=== PATIENT | female | born 1970 | race Caucasian/White ===

== ENCOUNTER 2020-11-18 13:18 | Emergency (ER) | payer OTHER, SELFPAY ==
[2020-11-18 14:00] VITALS: BP 137/74; PULSE 74; RESP 16; TEMP 36.8; O2SAT 93; BMI 33.5
--- NOTE | 2020-11-18 14:26 | W.ED.GENADLT ---
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 Tetanus is UTD. 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
--- NOTE | 2020-11-18 15:20 | W.ED.GENADLT ---
HPI - General Adult General: Chief complaint: Needlestick/Injury/Exposure Stated complaint: NEEDLE STICK AT WORK/WC Time Seen by Provider: 11/18/20 14:20 Source: patient Mode of arrival: ambulatory Limitations: no limitations History of Present Illness: Onset (ago): hour(s) Location: left and upper extremity Relieving factors: none Exacerbating factors: none Associated symptoms: Reports no associated symptoms Treatments prior to arrival: other (irrigation) Review of Systems General: Reports: 10 or more systems reviewed and unremarkable except in HPI and below Physical Exam Const: COMMON NORMALS: no acute distress, no limitations, healthy appearing and alert Extremity: COMMON NORMALS: normal to inspection Neuro: COMMON NORMALS: moves all extremities, no focal motor deficits and no sensory deficits noted SENSORIUM/ORIENTATION: Yes alert Skin: NARRATIVE SKIN EXAM: no obvious puncture wounds noted Course Vital Signs: Vital signs: Vital Signs Temperature 98.2 F 11/18/20 14:00 Pulse Rate 74 11/18/20 14:00 Respiratory Rate 16 11/18/20 14:00 Blood Pressure 137/74 11/18/20 14:00 Pulse Oximetry 93 11/18/20 14:00 Discharge Plan Discharge Patient Disposition: Home Patient Instructions: Opioid Safety Coding Level of Care Code 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
--- NOTE | 2020-11-18 15:21 | PC.NURSE ---
Pt left the dept before being seen by provider or myself. pt went to her home dept and then went home
[2020-11-18 15:55] LABS: Hepatitis B Surface Antigen Non-Reactive (Nonreactive); Hepatitis C Virus Antibody Non-Reactive (Nonreactive)
[2020-11-18 20:26] LABS: HIV 1 & 2 Antibody Non-Reactive (Non-Reactiv); HIV 1 & 2 Antigen Non-Reactive (Non-Reactiv)
[2020-11-18 21:48] LABS: Hepatitis B Surface AB > 1000.0 (11.5-1000)
== END 2020-11-18 15:46 | disposition home or self-care (01) ==
PROVIDERS: Physician Assistant
DX: Z53.21 Procedure and treatment not carried out due to patient leaving prior to being seen by health care provider (principal)
CPT/HCPCS: 36415; 86706; 86803; 87340; 87806; 99282

== ENCOUNTER 2021-01-19 11:47 | Emergency (ER) | payer OTHER, SELFPAY ==
--- NOTE | 2021-01-19 12:46 | XRR_ITS ---
PROCEDURE INFORMATION: Exam: XR Left Hand Exam date and time: 01/19/2021 12:46 PM Age: 50 years old Clinical indication: Injury or trauma; Work related; Crushing; Left; Injury date: 01/19/21; Injury details: --caught hand between fracture table and the wall at work, pain in 5th digit and palm TECHNIQUE: Imaging protocol: XR Left hand. Views: 1 or 2 views. COMPARISON: No relevant prior studies available. FINDINGS: Bones/joints: No fracture. No dislocation. Soft tissues: No acute soft tissue abnormality. XR/XR hand LT 2V [id number] IMPRESSION: No fracture.
[2021-01-19 12:52] VITALS: BP 151/81; PULSE 63; RESP 18; TEMP 37.2; O2SAT 96
--- NOTE | 2021-01-19 14:37 | W.ED.EXTPRO ---
HPI - Extremity Problem General: Chief complaint: Extremity Injury, Upper Stated complaint: L hand Pain Time Seen by Provider: 01/19/21 13:34 Source: patient Mode of arrival: ambulatory Limitations: no limitations History of Present Illness: HPI Narrative: left hand pain; injury was moving fx board while working and hand was crushed between machine and bed Review of Systems General: Reports: 10 or more systems reviewed and unremarkable except in HPI and below Musc: Reports: extremity pain and extremity swelling PFS ED PFSH: Social History Smoking and tobacco status: former smoker Physical Exam Const: COMMON NORMALS: no acute distress, patient oriented x3, no limitations and alert GENERAL APPEARANCE: cooperative and comfortable ORIENTATION/CONSCIOUSNESS: Yes awake, Yes oriented to person, Yes oriented to place and Yes oriented to time HENMT: COMMON NORMALS: normocephalic, atraumatic, external ears normal, EAC's normal, TM's normal bilaterally and Normal external nose present HEAD & SCALP: normal to inspection, normocephalic and atraumatic FACE & SINUS: normal facial exam, sinuses nontender and face symmetric NOSE: Normal external nose present, Normal nares present and No nasal discharge present EXTERNAL EAR: Yes external ears normal EXTERNAL AUDITORY CANAL: EAC's normal TYMPANIC MEMBRANE: TM's normal bilaterally MOUTH: Normal oral and palatal mucosa present, lip normal and tongue normal THROAT: posterior oropharynx normal, tonsils normal and uvula midline Eye: COMMON NORMALS: Equal, round and reactive pupils present, EOMs intact bilaterally and conjunctivae normal GENERAL EYE: appearance normal, both eyes and all related structures and normal light reflex EYELID: eyelids normal CONJUNCTIVA: Yes conjunctivae normal PUPIL: Yes Equal, round and reactive pupils present EOM: Yes EOM abnormal DIRECT OPHTHALMOSCOPY: Yes normal light reflex Neck/C-Spine: COMMON NORMALS: full ROM, no lymphadenopathy, supple, no meningeal signs, no JVD and Thyroid normal GENERAL: Yes normal visual inspection THYROID: Thyroid normal CERVICAL SPINE: Yes cervical ROM normal and Yes normal cervical lordosis Lymph: LYMPHATIC: no lymphadenopathy noted Chest: COMMONS NORMALS: normal inspection of the chest and normal palpation of entire chest wall Resp: COMMON NORMALS: normal respiratory effort, No retractions and clear to auscultation bilaterally AUSCULTATION: clear to auscultation bilaterally Cardio: COMMON NORMALS: no JVD, regular rate, regular rhythm, S1 normal heart sound present, S2 normal heart sound present, No gallops present (Cardio), No clicks present (Cardio), No murmurs present (Cardio), No rub (Cardio) and Peripheral pulses 2+ throughout RATE: regular rate RHYTHM: regular rhythm HEART SOUNDS: S1 normal heart sound present and S2 normal heart sound present PERIPHERAL PULSES: Peripheral pulses 2+ throughout GI: COMMON NORMALS: Normal to inspection, nondistended, normoactive bowel sounds present, Soft to palpation, non-tender and no masses PALPATION: Yes Soft to palpation : COMMON NORMALS: Yes no CVA tenderness and Yes normal external appearance BLADDER/KIDNEY EXAM: Yes no CVA tenderness Back/Pelvis: COMMON NORMALS: no CVA tenderness, thoracic and lumbar spine normal to inspection, no thoracic nor lumbar tenderness and thoraco-lumbar ROM normal Extremity: COMMON NORMALS: normal to inspection, full ROM, capillary refill normal, no joint enlargement, no clubbing, cyanosis or edema, no calf tenderness and no pedal edema GENERAL: Yes normal exam except as noted LEFT UPPER EXTREMITY: Yes hand & digits (ecchymosis noted to the inside of palm; NV intact ) Neuro: COMMON NORMALS: patient oriented x3, moves all extremities, no focal motor deficits, no sensory deficits noted and gait normal SENSORIUM/ORIENTATION: Yes alert, Yes oriented to person, Yes oriented to place and Yes oriented to time MENINGEAL SIGNS: Yes no meningeal signs Psych: COMMON NORMALS: mental status grossly normal, Normal thought process present, cooperative, normal affect, speech normal and activity/motor behavior normal SPEECH: Yes normal speech THOUGHT PROCESS: Normal thought process present Skin: COMMON NORMALS: no rashes or lesions noted, no wounds and turgor normal GENERAL SKIN EXAM: no rashes or lesions noted and turgor normal Course ED course: Pt was working and moving a fx board when her hand was smashed between it and the bed. She presents to ER with ecchymosis of the left hand and pain and swelling. XRAY is negative for fx. Will proceed with RICE therapy and return if needed. Vital Signs: Vital signs: Vital Signs Temperature 98.9 F 01/19/21 12:52 Pulse Rate 62 01/19/21 14:51 Respiratory Rate 18 01/19/21 14:51 Blood Pressure 154/84 01/19/21 14:51 Pulse Oximetry 95 01/19/21 14:51 MDM - Extremity (Nontraumatic) Imaging Data^: Other Imaging: Radiologist's impression: [address] [address] XRay Report Signed Patient: Marianela Mendoza Unit #: [id number] : 1970 Age/Sex: 50 / F ADM Date: 01/19/21 Loc: ER Room/Bed: Attending Dr: Ordering Provider/Ordering MD: Marta Jaramillo NP Date of Service: 01/19/21 Procedure(s): XR hand LT 2V 19278 Accession Number(s): [id number] Report Number: [id number] PROCEDURE INFORMATION: Exam: XR Left Hand Exam date and time: 01/19/2021 12:46 PM Age: 50 years old Clinical indication: Injury or trauma; Work related; Crushing; Left; Injury date: 01/19/21; Injury details: --caught hand between fracture table and the wall at work, pain in 5th digit and palm TECHNIQUE: Imaging protocol: XR Left hand. Views: 1 or 2 views. COMPARISON: No relevant prior studies available. FINDINGS: Bones/joints: No fracture. No dislocation. Soft tissues: No acute soft tissue abnormality. XR/XR hand LT 2V [id number] IMPRESSION: No fracture. Dictated By: Randal Wheatley Signed By: Randal Wheatley Signed Date/Time: 01/19/21 1327 DD/ 1325 Discharge Plan Discharge Patient Disposition: Home Clinical Impression: Crushing injury of hand Condition: Stable Prescriptions: New Ultram 50 mg tablet 25 mg PO Q6H PRN (Reason: pain) Qty: 10 RF: 0 Keflex 750 mg capsule 750 mg PO BID 7 Days Qty: 14 RF: 0 No Action estradiol 1 mg tablet 1 mg PO DAILY RF: 0 levothyroxine 75 mcg capsule 75 mcg PO DAILY RF: 0 escitalopram oxalate [Lexapro] 10 mg tablet 10 mg PO DAILY RF: 0 lisinopril 10 mg tablet 10 mg PO DAILY RF: 0 pantoprazole [Protonix] 40 mg tablet,delayed release (DR/EC) 40 mg PO DAILY 14 Days Qty: 14 RF: 0 Discharge Orders: Discharge ED (Routine); Ordered 01/19/21 Ordered By: Marta Jaramillo Discharge Diet: Advance as tolerated Discharge Activity: Increase activity as tolerated Patient Instructions: Opioid Safety Activity Restrictions/Additional Instructions: Return to work in 2 days if lessening in pain, if worsening please return for repeat xray. RICE therapy. 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
[2021-01-19 14:51] VITALS: BP 154/84; PULSE 62; RESP 18; O2SAT 95
[2021-01-19] MEDS: ibuprofen 800 mg tablet PO (15:20)
[2021-01-19] MEDS: HYDROcodone-acetaminophen 5-325 mg Tablet 1 TAB PO (15:20)
[2021-01-19 15:26] VITALS: BP 154/84; PULSE 62; RESP 18; O2SAT 95
== END 2021-01-19 15:30 | disposition home or self-care (01) ==
PROVIDERS: Emergency Provider Nurse Practitioner Family
DX: S67.22XA Crushing injury of left hand, initial encounter (principal); Z87.891 Personal history of nicotine dependence; W23.0XXA Caught, crushed, jammed, or pinched between moving objects, initial encounter
CPT/HCPCS: 73120; 99283